=== PATIENT | female | born 1980 | race Caucasian/White ===

== ENCOUNTER 2025-06-22 08:11 | Outpatient (REF) | payer OTHER, MEDICAID, SELFPAY ==
--- NOTE | ~2025-06-22 | XR_ITS ---
EXAMINATION: XR HIP, LEFT CLINICAL INFORMATION: M25.559 - Pain in unspecified hip COMPARISON: None available. TECHNIQUE: AP pelvis, AP and frog-leg views of the left hip. FINDINGS: X-ray of the pelvis consult the iliac crests and upper sacrum. 2 reconstruction plates and screw fixation is present across the left hemipelvis extending across the superior pubic ramus and into the proximal ischium. Hardware appears intact without abnormal lucencies at bone metal interfaces. There is left femoral head and neck replacement. There appears to be cephalad migration of the prosthetic femoral head into the ileum. The lesser trochanter of the left femur is 4 cm cephalad to the right. The adjacent iliac bone is sclerotic. The femoral stem is secured with methacrylate. There is heterotopic ossification in the soft tissues inferomedial to this prosthetic femoral neck. XR/XR hip LT min 2V IMPRESSION: Prosthetic left femoral component with 4 cm cephalad migration of the femur and left femoral head prosthesis protrusion into the left acetabular roof. ORIF left pelvic fracture. Electronically signed by: Fermin Padgett MD 06/22/2025 12:34 PM CHARLIE HIGGINBOTHAM
== END 2025-06-22 08:12 | disposition home or self-care (01) ==
LOC: HO.HOSX 08:11
PROVIDERS: Visit Provider Physician Assistant
DX: T84.84XA Pain due to internal orthopedic prosthetic devices, implants and grafts, initial encounter (principal); M21.70 Unequal limb length (acquired), unspecified site; Z98.890 Other specified postprocedural states; Z96.642 Presence of left artificial hip joint; Z87.81 Personal history of (healed) traumatic fracture
CPT/HCPCS: 73502; 99202

== ENCOUNTER 2025-06-22 12:08 | Outpatient (AMB) | payer OTHER, SELFPAY ==
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
== END 2025-06-22 13:11 | disposition home or self-care (01) ==
LOC: HO.HOS 12:09
PROVIDERS: Visit Provider Physician Assistant
DX: T84.84XA Pain due to internal orthopedic prosthetic devices, implants and grafts, initial encounter (principal); M21.70 Unequal limb length (acquired), unspecified site; Z98.890 Other specified postprocedural states; Z87.81 Personal history of (healed) traumatic fracture; Z96.642 Presence of left artificial hip joint
CPT/HCPCS: 99204; G2211

== ENCOUNTER → 2025-06-22 12:10 | Outpatient (BNV) | payer OTHER, SELFPAY | PROVIDERS: Visit Provider Radiology Diagnostic Radiology | DX: S32.502A Unspecified fracture of left pubis, initial encounter for closed fracture (principal) | CPT/HCPCS: 73502 ==